=== PATIENT | female | born 1985 | race Two or more races ===

== ENCOUNTER 2019-05-12 16:24 | Emergency (ER) | payer MEDICAID ==
[~2019-05-12] VITALS: Ht 152.4 cm; Wt 45.8 kg
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
[2019-05-12] MEDS ORDERED: KETOROLAC TROMETHAMINE INJ 30 MG/ML VIAL ONE (17:25)
[2019-05-12] MEDS: KETOROLAC TROMETHAMINE INJ 30 MG/ML VIAL IM ONE (17:30)
[2019-05-12 19:04] VITALS: BP 135/71
--- NOTE | 2019-05-12 19:05 | NUR ---
Patient discharged to home in stable condition. Written and verbal after care instructions given. Patient verbalizes understanding of instruction.
== END 2019-05-12 19:05 | disposition home or self-care (01) ==
LOC: ER 16:26
DX: S20.212A Contusion of left front wall of thorax, initial encounter (principal); V49.59XA Passenger injured in collision with other motor vehicles in traffic accident, initial encounter; Y93.89 Activity, other specified; Y92.413 State road as the place of occurrence of the external cause; Y99.8 Other external cause status
CPT/HCPCS: 71100; 84703; 96372; 99284; J1885

== ENCOUNTER 2023-08-15 07:51 | Inpatient (IN) | payer MEDICAID ==
[~2023-08-15] VITALS: Ht 152.4 cm; Wt 49.9 kg
[2023-08-15] MEDS ORDERED: ONDANSETRON HCL/PF 4 MG/2 ML VIAL ONE ×2 (08:14→11:11)
[2023-08-15] MEDS ORDERED: MORPHINE SULFATE INJ 4 MG/ML DISP.SYRIN ONE (08:14)
[2023-08-15] MEDS ORDERED: ONDANSETRON HCL/PF - ER 4 MG/2 ML VIAL IV ONE ×2 (08:30→11:00)
[2023-08-15] MEDS ORDERED: MORPHINE SULFATE INJ 2 MG/ML DISP.SYRIN IV ONE (08:30)
[2023-08-15] MEDS ORDERED: KETOROLAC TROMETHAMINE INJ 30 MG/ML VIAL ONE ×2 (08:30→09:46)
[2023-08-15] MEDS ORDERED: KETOROLAC TROMETHAMINE INJ 30 MG/ML VIAL IV ONE ×2 (08:30→10:00)
[2023-08-15] MEDS ORDERED: IV NS 0.9% 1,000 ML BAG IV ONE (08:30)
[2023-08-15 08:45] LABS: BASOPHILS % (AUTO) 0.8 % (0.0-2.0); EOSINOPHILS # (AUTO) 0.1 K/uL (0.0-0.7); EOSINOPHILS % (AUTO) 2.6 % (0.0-6.0); HEMATOCRIT 42 % (33-45); HEMOGLOBIN 13.4 g/dL (11.5-14.8); LYMPHOCYTES % (AUTO) 40.6 % (20.0-44.0); MEAN CORPUSCULAR HEMOGLOBIN 26 PG (26.0-33.0); MEAN CORPUSCULAR HGB CONC 32 g/dl (31.0-36.0); MEAN CORPUSCULAR VOLUME 82 fL (82-100); MONOCYTES # (AUTO) 0.4 K/uL (0.1-1.30); MONOCYTES % (AUTO) 8.1 % (2.0-12.0); NEUTROPHILS # (AUTO) 2.4 K/uL (1.8-8.9); NEUTROPHILS % (AUTO) 47.9 % (43.0-81.0); PLATELET COUNT (AUTO) 229 K/uL (150-450); RED BLOOD CELL COUNT(AUTO) 5.12 MIL/uL (4.0-5.2); RED CELL DISTRIBUTION WIDTH 14.4 % (11.5-15.0); WHITE BLOOD COUNT (AUTO) 4.9 K/uL (4.3-11.0)
[2023-08-15 08:53] LABS: CALCIUM, SERUM 9.1 mg/dL (8.5-10.1); CREATININE 0.8 mg/dL (0.6-1.3); POTASSIUM 3.4 mmol/L (3.5-5.1)
[2023-08-15 08:58] LABS: ALBUMIN 3.8 g/dL (3.4-5.0); BILIRUBIN,DIRECT 0.1 mg/dL (0.0-0.2); BILIRUBIN,TOTAL 0.4 mg/dL (0.2-1.0); TOTAL PROTEIN, SERUM 8.1 g/dL (6.4-8.2)
[2023-08-15 09:00] LABS: APPEARANCE,URINE TURBID (CLEAR); BILIRUBIN,URINE 1+ (NEGATIVE); BLOOD, URINE 3+ Ery/uL (NEGATIVE); COLOR,URINE DARK YELLOW (YELLOW); KETONES,URINE TRACE mg/dL (NEGATIVE); LEUKOCYTE ESTERASE ,URINE NEGATIVE (NEGATIVE); NITRITE, URINE NEGATIVE (NEGATIVE); PH,URINE 5.5 (5.0-8.0); PROTEIN,URINE 1+ mg/dl (NEGATIVE); UGLUCOSE NEGATIVE (NEGATIVE); UROBILINOGEN,URINE 0.2 EU/dL (0.2)
[2023-08-15 09:04] LABS: RBC,URINE TOO NUMEROUS TO COUN /HPF (0-2)
[2023-08-15 09:05] LABS: ADD URINE CULTURE YES; BACTERIA,URINE Few /HPF (None Seen); PREGNANCY TEST URINE QUAL NEGATIVE (NEGATIVE); SQUAMOUS EPITHELIAL CELL,UR Rare /HPF (None Seen)
[2023-08-15] MEDS ORDERED: IV NS 0.9% 1,000 ML IV ONE (10:00)
[2023-08-15] MEDS ORDERED: HYDROMORPHONE 1 MG/1 ML DISP.SYRIN IV ONE (11:00)
[2023-08-15] MEDS ORDERED: HYDROMORPHONE 1 MG/1 ML DISP.SYRIN ONE (11:11)
[2023-08-15 11:51] VITALS: O2SAT 100
[2023-08-15] MEDS ORDERED: TAMSULOSIN 0.4 MG CAP.SR.24H PO ONE (13:00)
[2023-08-15] MEDS ORDERED: MORPHINE SULFATE INJ 2 MG/ML DISP.SYRIN IV PRN (15:00)
[2023-08-15] MEDS ORDERED: IV NS 0.9% 1,000 ML BAG IV SCH (15:00)
[2023-08-15] MEDS ORDERED: ACETAMINOPHEN 325 MG TABLET PO PRN (15:00)
[2023-08-15] MEDS ORDERED: ZOLPIDEM TARTRATE 5 MG TABLET PO PRN (15:00)
[2023-08-15] MEDS ORDERED: KETOROLAC TROMETHAMINE 15 MG/ML VIAL IV PRN (15:00)
[2023-08-15] MEDS: TAMSULOSIN 0.4 MG CAP.SR.24H PO SCH (15:42)
[2023-08-15] MEDS: HYDROCODONE/APAP 5/325MG TABLET PO PRN ×2 (15:51→20:14)
[2023-08-15] MEDS: IV NS 0.9% 1,000 ML IV PRN (16:25)
[2023-08-15 20:00] VITALS: BP 135/86; TEMP 97.9; O2SAT 100
[2023-08-15] MEDS ORDERED: CEFTRIAXONE 1 G in IV D5W 50 ML IV SCH (20:00)
[2023-08-15] MEDS: ONDANSETRON HCL/PF 4 MG/2 ML VIAL IV PRN (20:22)
[2023-08-16] MEDS: IV NS 0.9% 1,000 ML IV PRN ×2 (01:30→12:14)
[2023-08-16] MEDS: ONDANSETRON HCL/PF 4 MG/2 ML VIAL IV PRN (02:20)
[2023-08-16] MEDS: HYDROCODONE/APAP 5/325MG TABLET PO PRN ×4 (02:34→18:27)
[2023-08-16 06:21] LABS: BASOPHILS % (AUTO) 0.2 % (0.0-2.0); EOSINOPHILS # (AUTO) 0.1 K/uL (0.0-0.7); EOSINOPHILS % (AUTO) 0.7 % (0.0-6.0); HEMATOCRIT 36 % (33-45); HEMOGLOBIN 11.7 g/dL (11.5-14.8); LYMPHOCYTES # (AUTO) 0.8 K/uL (0.8-4.8); LYMPHOCYTES % (AUTO) 11.3 % (20.0-44.0); MEAN CORPUSCULAR HEMOGLOBIN 27 PG (26.0-33.0); MEAN CORPUSCULAR HGB CONC 32 g/dl (31.0-36.0); MEAN CORPUSCULAR VOLUME 82 fL (82-100); MONOCYTES # (AUTO) 0.5 K/uL (0.1-1.30); MONOCYTES % (AUTO) 7.4 % (2.0-12.0); NEUTROPHILS # (AUTO) 5.9 K/uL (1.8-8.9); NEUTROPHILS % (AUTO) 80.4 % (43.0-81.0); PLATELET COUNT (AUTO) 173 K/uL (150-450); RED BLOOD CELL COUNT(AUTO) 4.39 MIL/uL (4.0-5.2); RED CELL DISTRIBUTION WIDTH 14.5 % (11.5-15.0); WHITE BLOOD COUNT (AUTO) 7.3 K/uL (4.3-11.0)
[2023-08-16 06:48] LABS: CALCIUM, SERUM 7.7 mg/dL (8.5-10.1); CREATININE 0.9 mg/dL (0.6-1.3)
[2023-08-16 07:00] VITALS: BP 103/58; TEMP 98.8; O2SAT 100
[2023-08-16] MEDS: TAMSULOSIN 0.4 MG CAP.SR.24H PO SCH (08:23)
[2023-08-16] MEDS ORDERED: LEVO250T59 PO ×2 (08:58→08:59)
[2023-08-16 16:00] VITALS: BP 115/65; TEMP 98.7; O2SAT 99
[2023-08-17] MEDS ORDERED: IBUP-1957 PO (12:03)
[2023-08-17] MEDS ORDERED: TAMS-12 PO (12:03)
== END 2023-08-16 18:45 | disposition home or self-care (01) | DRG 463 ==
LOC: ER 08:02 → MED 12:54
PROVIDERS: ADMIT Internal Medicine; ATTEND Internal Medicine
DX: N13.6 Pyonephrosis (principal); Z87.442 Personal history of urinary calculi
CPT/HCPCS: 36415; 76856-TC; 80048-TC; 80076-TC; 81001; 83690-TC; 84703-TC; 85025-TC; 87086-TC; A4223; G0378; J0696; J1170; J1885; J2270; J2405; J7030; J7060

== ENCOUNTER 2023-08-17 11:35 | Emergency (ER) | payer MEDICAID ==
[~2023-08-17] VITALS: Ht 152.4 cm; Wt 49.9 kg
[~2023-08-17 11:35] MED LIST: LEVO250T59 PO
[2023-08-17] MEDS ORDERED: KETOROLAC TROMETHAMINE INJ 30 MG/ML VIAL IM ONE (12:00)
[2023-08-17] MEDS ORDERED: TAMSULOSIN 0.4 MG CAP.SR.24H PO ONE (12:00)
[2023-08-17] MEDS ORDERED: TAMS-12 PO (12:03)
[2023-08-17] MEDS ORDERED: IBUP-1957 PO (12:03)
[2023-08-17] MEDS ORDERED: TAMSULOSIN 0.4 MG CAP.SR.24H ONE (12:10)
[2023-08-17] MEDS ORDERED: KETOROLAC TROMETHAMINE INJ 30 MG/ML VIAL ONE (12:10)
[2023-08-17 12:58] VITALS: BP 116/66; TEMP 98.4; O2SAT 100
== END 2023-08-17 12:58 | disposition home or self-care (01) ==
LOC: ER 11:38
DX: N20.0 Calculus of kidney (principal)
CPT/HCPCS: 99283; 96372; J1885